=== PATIENT | male | born 1975 | race American Indian/Alaskan Native ===

== ENCOUNTER 2021-01-30 14:46 | Emergency (ER) | payer SELFPAY ==
--- NOTE | 2021-01-30 14:56 | Event Note ---
ED Screening Note ED Screening Note: Patient is a 45-year-old male presents emergency room with complaints of shortness of breath that began yesterday He has been having pain in his chest and his neck since yesterday His symptoms worsened today He reports he has chronic diarrhea He denies any nausea, vomiting, cough, fever Patient recently had CA in August 2020 and had stents placed at [facility] He also has a history of HIV, neuropathy, radiculopathy he states he also broke out in a rash around his neck which does not itch appears to be small petechial rash This initial assessment/diagnostic orders/clinical plan/treatment(s) is/are subject to change based on patients health status, clinical progression and re- assessment by fellow clinical providers in the ED. Further treatment and workup at subsequent clinical providers discretion. Patient/guardian urged not to elope from the ED as their condition may be serious if not clinically assessed and managed. Initial orders include: Chest pain protocol
--- NOTE | 2021-01-30 15:26 | XRay Report ---
CHEST 2 VIEWS INDICATION: Chest Pain. COMPARISON: None FINDINGS: SUPPORT DEVICES: None. HEART: Within normal limits. LUNGS/PLEURA: No acute air space or interstitial disease. No pneumothorax. ADDITIONAL FINDINGS: None. IMPRESSION: 1. No acute findings. Signer Name: Chong Gonzalez MD Signed: 01/30/2021 3:21 PM Workstation Name: [id number]
[2021-01-30 16:00] LABS: Basophils # (Auto) 0.2 K/mm3 (0.0-0.1); Basophils % (Auto) 1.5 % (0.0-1.8); Eosinophils # (Auto) 0.2 K/mm3 (0.0-0.4); Eosinophils % (Auto) 1.9 % (0.0-4.3); Lymphocytes # (Auto) 2.4 K/mm3 (1.2-5.4); Lymphocytes % (Auto) 18.9 % (13.4-35.0); Mean Corpuscular HGB Conc 34 % (32-34); Mean Corpuscular Volume 97 fl (84-94); Monocytes # (Auto) 0.7 K/mm3 (0.0-0.8); Monocytes % (Auto) 5.6 % (0.0-7.3); Platelet Count 200 K/mm3 (140-440); Red Blood Count 4.25 M/mm3 (3.65-5.03); Red Cell Distribution Width 14.4 % (13.2-15.2)
[2021-01-30 16:18] LABS: INR 1.06 (0.87-1.13)
[2021-01-30 16:19] LABS: Partial Thromboplastin Time 31.8 Sec. (24.2-36.6)
[2021-01-30 16:22] LABS: Alanine Aminotransferase 16 units/L (7-56); Albumin 4.3 g/dL (3.9-5); BUN/Creatinine Ratio 13; Blood Urea Nitrogen 13 mg/dL (9-20); Calcium 8.9 mg/dL (8.4-10.2); Hemolysis Index 6
--- NOTE | 2021-01-31 10:52 | Electrocardiograph Report ---
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
== END 2021-01-30 20:00 | disposition left against medical advice (07) ==
LOC: ED 14:46
DX: R07.9 Chest pain, unspecified (principal); Z53.21 Procedure and treatment not carried out due to patient leaving prior to being seen by health care provider
CPT/HCPCS: 36415; 71046; 80053; 83880; 84484; 85025; 85610; 85730; 93005

== ENCOUNTER 2021-01-31 08:02 | Emergency (ER) | payer OTHER ==
[2021-01-31] MEDS ORDERED: ASPIRIN 81 MG TAB CHEW PO ONE (10:07)
--- NOTE | 2021-01-31 10:10 | Event Note ---
ED Screening Note Date of service: 01/31/21 Time: 10:07 ED Screening Note: 45-year-old male patient with history of HIV and myocardial infarction status post percutaneous coronary intervention last year presents to the emergency department with complaints of left-sided chest pain, back pain, and bilateral leg pain starting yesterday. Patient was evaluated in the emergency department yesterday but eloped prior to completion of diagnostic work-up. His pain has not resolved. States his pain is consistent with prior [place]. Patient is on antiretroviral therapy and his last CD4 count was undetectable. Denies fever, chills, cough, shortness of breath, nausea, vomiting, diaphoresis, syncope, l ower extremity pain/swelling. Denies all other complaints at this time. Tachycardic in triage. General: Awake, appropriately interactive, no acute distress. Neck: Supple. Full range of motion intact. Cardiovascular: Normal peripheral perfusion. Pulmonary: No respiratory distress. Patient is speaking normally without use of accessory muscles. Skin: No apparent rashes or lesions. Neurological: No facial asymmetry. Speech is clear. Follows commands. Patient is alert and oriented. Musculoskeletal: Moves all four extremities spontaneously with normal range of motion. Psych: Cooperative. Appropriate mood and affect. Cardiac work-up initiated. Decision to pursue further venous thromboembolism work-up deferred to additional ED providers. I have greeted and performed a focused rapid initial assessment of this patient. A comprehensive ED assessment and evaluation of the patient, analysis of all test results, and completion of the medical decision-making process will be conducted by additional ED providers. This initial assessment/diagnostic orders/clinical plan/treatment(s) is/are subject to change based on patients health status, clinical progression and re-assessment. Further treatment and workup at subsequent clinical provider's discretion. Patient/guardian urged not to elope from the ED as their condition may be serious if not clinically assessed and managed.
[2021-01-31 10:41] LABS: Basophils # (Auto) 0.1 K/mm3 (0.0-0.1); Basophils % (Auto) 0.5 % (0.0-1.8); Eosinophils # (Auto) 0.1 K/mm3 (0.0-0.4); Eosinophils % (Auto) 0.7 % (0.0-4.3); Hematocrit 42.9 % (35.5-45.6); Hemoglobin 14.7 gm/dl (11.8-15.2); Lymphocytes # (Auto) 2.4 K/mm3 (1.2-5.4); Lymphocytes % (Auto) 17.1 % (13.4-35.0); Mean Corpuscular HGB Conc 34 % (32-34); Mean Corpuscular Volume 97 fl (84-94); Monocytes # (Auto) 1.3 K/mm3 (0.0-0.8); Monocytes % (Auto) 9.1 % (0.0-7.3); Platelet Count 209 K/mm3 (140-440); Red Blood Count 4.41 M/mm3 (3.65-5.03); Red Cell Distribution Width 14.6 % (13.2-15.2)
[2021-01-31 11:40] LABS: Alanine Aminotransferase 14 units/L (7-56); Albumin 4.5 g/dL (3.9-5); BUN/Creatinine Ratio 13; Blood Urea Nitrogen 12 mg/dL (9-20); Calcium 9.4 mg/dL (8.4-10.2); Hemolysis Index 6
--- NOTE | 2021-01-31 11:52 | XRay Report ---
XR chest routine 2V INDICATION / CLINICAL INFORMATION: chest pain COMPARISON: 01/30/2021 FINDINGS: SUPPORT DEVICES: None. HEART / MEDIASTINUM: No significant abnormality. LUNGS / PLEURA: Lungs are clear. Costophrenic sulci are sharp. No pneumothorax. ADDITIONAL FINDINGS: No significant additional findings. IMPRESSION: 1. No acute findings. Signer Name: Elliot Martinez MD Signed: 01/31/2021 11:47 AM Workstation Name: [id number]
--- NOTE | 2021-01-31 17:21 | Emergency Department Report ---
ED Chest Pain HPI - General Chief Complaint: Chest Pain Stated Complaint: CHEST PAIN/SEEN HERE YESTERDAY LWT Time Seen by Provider: 01/31/21 16:58 Source: patient Mode of arrival: Ambulatory Limitations: No Limitations - History of Present Illness Initial Comments: Patient is a 45-year-old F [place] male with past medical history of coronary artery disease status post 2 stents as well as HIV who is presenting with left- sided chest discomfort. States symptoms started yesterday. Has some mild shortness of breath and a mild occasional nonproductive cough. Patient also complaining of body aches especially in his bilateral legs. Denies any swellin g. States he also has had some diarrhea for the last 24 hours as well but states there is no nausea. Denies fevers chills. Patient states he does not have any exposures to COVID-19 that he knows of. Patient was seen here yesterday for similar complaints but left before being seen by physician. Severity scale (0 -10): 10 - Related Data Previous Rx's Medication Instructions Recorded Last Taken Type Albuterol Mdi (or & Nicu Only) 2 puff IH QID PRN #1 inhalation 01/31/21 Unknown Rx [ProAir HFA Inhaler] Diphenoxylate/Atropine [Lomotil] 1 tab PO Q4H PRN #10 tablet 01/31/21 Unknown Rx Ketorolac [Toradol] 10 mg PO Q6H PRN #12 tablet 01/31/21 Unknown Rx predniSONE [Deltasone] 20 mg PO QDAY #5 tab 01/31/21 Unknown Rx traMADoL [Ultram] 50 mg PO Q6HR PRN #12 tablet 01/31/21 Unknown Rx Allergies Allergy/AdvReac Type Severity Reaction Status Date / Time ciprofloxacin [From Cipro] AdvReac Unknown Verified 01/30/21 15:04 Heart Score - HEART Score History: Slightly suspicious EKG: Normal Age: < 45 Risk factors: > 3 risk factors or hx of atherosclerotic disease Troponin: < normal limit HEART Score: 2 - EKG Read Time Time EKG Completed: 08:13 EKG Read Time: 08:17 ED Review of Systems ROS: Stated complaint: CHEST PAIN/SEEN HERE YESTERDAY LWT Other details as noted in HPI Constitutional: denies: chills, fever Eyes: denies: eye pain, eye discharge, vision change ENT: denies: ear pain, throat pain Respiratory: shortness of breath. denies: cough, wheezing Cardiovascular: denies: chest pain, palpitations Endocrine: no symptoms reported Gastrointestinal: diarrhea. denies: abdominal pain, nausea Genitourinary: denies: urgency, dysuria Musculoskeletal: denies: back pain, joint swelling, arthralgia Skin: denies: rash, lesions Neurological: denies: headache, weakness, paresthesias Psychiatric: denies: anxiety, depression Hematological/Lymphatic: denies: easy bleeding, easy bruising ED Past Medical Hx - Past Medical History Previous Medical History?: Yes Hx Heart Attack/AMI: Yes Hx HIV: Yes Additional medical history: coronary stents - Surgical History Past Surgical History?: Yes Additional Surgical History: neck surgery - Social History Smoking Status: Never Smoker Substance Use Type: None - Medications Home Medications: Home Medications Medication Instructions Recorded Confirmed Last Taken Type Albuterol Mdi (or & Nicu Only) 2 puff IH QID PRN #1 inhalation 01/31/21 Unknown Rx [ProAir HFA Inhaler] Diphenoxylate/Atropine [Lomotil] 1 tab PO Q4H PRN #10 tablet 01/31/21 Unknown Rx Ketorolac [Toradol] 10 mg PO Q6H PRN #12 tablet 01/31/21 Unknown Rx predniSONE [Deltasone] 20 mg PO QDAY #5 tab 01/31/21 Unknown Rx traMADoL [Ultram] 50 mg PO Q6HR PRN #12 tablet 01/31/21 Unknown Rx ED Physical Exam - General Limitations: No Limitations General appearance: alert, in no apparent distress - Head Head exam: Present: atraumatic, normocephalic - Eye Eye exam: Present: normal appearance - ENT ENT exam: Present: mucous membranes moist - Neck Neck exam: Present: normal inspection - Respiratory Respiratory exam: Present: normal lung sounds bilaterally. Absent: respiratory distress, wheezes, rales, rhonchi - Cardiovascular Cardiovascular Exam: Present: regular rate, normal rhythm, normal heart sounds. Absent: systolic murmur, diastolic murmur, rubs, gallop - GI/Abdominal GI/Abdominal exam: Present: soft, normal bowel sounds. Absent: distended, tenderness, guarding - Rectal Rectal exam: Present: deferred - Extremities Exam Extremities exam: Present: normal inspection - Back Exam Back exam: Present: normal inspection - Neurological Exam Neurological exam: Present: alert, oriented X3 - Psychiatric Psychiatric exam: Present: normal affect, normal mood - Skin Skin exam: Present: warm, dry, intact, normal color. Absent: rash ED Course Vital Signs 01/31/21 08:10 Temperature 99.3 F Pulse Rate 108 H Respiratory 18 Rate Blood Pressure 122/91 [Right] O2 Sat by Pulse 99 Oximetry ED Medical Decision Making - Lab Data Result diagrams: 01/31/21 10:15 01/31/21 10:15 Lab Results 01/31/21 01/31/21 Range/Units 10:15 10:15 WBC 13.8 H (4.5-11.0) K/mm3 RBC 4.41 (3.65-5.03) M/mm3 Hgb 14.7 (11.8-15.2) gm/dl Hct 42.9 (35.5-45.6) % MCV 97 H (84-94) fl MCH 33 H (28-32) pg MCHC 34 (32-34) % RDW 14.6 (13.2-15.2) % Plt Count 209 (140-440) K/mm3 Lymph % (Auto) 17.1 (13.4-35.0) % [place] % (Auto) 9.1 H (0.0-7.3) % Eos % (Auto) 0.7 (0.0-4.3) % Baso % (Auto) 0.5 (0.0-1.8) % Lymph # (Auto) 2.4 (1.2-5.4) K/mm3 [place] # (Auto) 1.3 H (0.0-0.8) K/mm3 Eos # (Auto) 0.1 (0.0-0.4) K/mm3 Baso # (Auto) 0.1 (0.0-0.1) K/mm3 Seg Neutrophils % 72.6 H (40.0-70.0) % Seg Neutrophils # 10.0 H (1.8-7.7) K/mm3 Sodium 137 (137-145) mmol/L Potassium 3.5 L (3.6-5.0) mmol/L Chloride 99.6 (98-107) mmol/L Carbon Dioxide 26 (22-30) mmol/L Anion Gap 15 mmol/L BUN 12 (9-20) mg/dL Creatinine 0.9 (0.8-1.3) mg/dL Estimated GFR > 60 ml/min BUN/Creatinine Ratio 13 % Glucose 100 (75-100) mg/dL Calcium 9.4 (8.4-10.2) mg/dL Magnesium 2.20 (1.7-2.3) mg/dL Total Bilirubin 0.50 (0.1-1.2) mg/dL AST 18 (5-40) units/L ALT 14 (7-56) units/L Alkaline Phosphatase 96 (35-129) units/L Total Creatine Kinase 136 (55-170) units/L Troponin T < 0.010 (0.00-0.029) ng/mL Total Protein 7.6 (6.3-8.2) g/dL Albumin 4.5 (3.9-5) g/dL Albumin/Globulin Ratio 1.5 % trop neg x 2 yeserday - EKG Data -: EKG Interpreted by Pa EKG shows normal: sinus rhythm, axis, intervals, QRS complexes, ST-T waves Rate: normal - Radiology Data Radiology results: image reviewed (Patient has a area of gaseous distention of the colon in the left upper quadrant.) XRay Report Signed Patient: LAURY DIAZ MR#: [id number] : 1975 Acct:[id number] Age/Sex: 45 / M ADM Date: 01/31/21 Loc: ED Attending Dr: Ordering Physician: AMARA PIERCE Date of Service: 01/31/21 Procedure(s): XR chest routine 2V Accession Number(s): [id number] cc: AMARA PIERCE Fluoro Time In Minutes: XR chest routine 2V INDICATION / CLINICAL INFORMATION: chest pain COMPARISON: 01/30/2021 FINDINGS: SUPPORT DEVICES: None. HEART / MEDIASTINUM: No significant abnormality. LUNGS / PLEURA: Lungs are clear. Costophrenic sulci are sharp. No pneumoth orax. ADDITIONAL FINDINGS: No significant additional findings. IMPRESSION: 1. No acute findings. Signer Name: Elliot Martinez MD Signed: 01/31/2021 11:47 AM Workstation Name: [id number] - Medical Decision Making Patient has been ruled out for [place] with 3 - troponins over the last 24 hours. Because of the body aches the slight elevation of his white count diarrhea and shortness of breath patient likely has viral illness and could possibly have COVID-19. Urged the patient to get outpatient testing for COVID-19 and will give the patient medications for symptomatic relief. Critical care attestation.: If time is entered above; I have spent that time in minutes in the direct care of this critically ill patient, excluding procedure time. ED Disposition Clinical Impression: Viral syndrome, Suspected COVID-19 virus infection, Atypical chest pain Disposition: DC-01 TO HOME OR SELFCARE Is pt being admited?: No Does the pt Need Aspirin: No Condition: Stable Instructions: Nonspecific Chest Pain, Adult, Viral Illness, Adult, COVID-19 Frequently Asked Questions Referrals: PRIMARY CARE, [Primary Care Provider] - 3-5 Days Time of Disposition: 17:24
[2021-01-31 17:46] VITALS: BP 114/77
--- NOTE | 2021-02-01 13:51 | Electrocardiograph Report ---
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
== END 2021-01-31 17:47 | disposition home or self-care (01) ==
LOC: ED 08:02
DX: B34.9 Viral infection, unspecified (principal); Z20.822 Contact with and (suspected) exposure to COVID-19; R07.89 Other chest pain; I25.2 Old myocardial infarction; Z21 Asymptomatic human immunodeficiency virus [HIV] infection status; Z98.890 Other specified postprocedural states; Z79.899 Other long term (current) drug therapy; Z88.1 Allergy status to other antibiotic agents
CPT/HCPCS: 36415; 71046; 80053; 82550; 83735; 84484; 85025; 93005